=== PATIENT | female | born 1945 | race Caucasian/White ===

== ENCOUNTER 2016-07-08 07:15 | Day surgery (SDC) | payer OTHER ==
[~2016-07-08] VITALS: Ht 152.4 cm; Wt 99.0 kg
[~2016-07-08 07:15] MED LIST: APIDRA100 UNITS/ PO; ASPIR 8181 M1 PO; ASPIR 8181 MG PO; Aldactone PO; BENICAR HCT 401 EAC1 PO; COREG25 M1 PO; COZAAR25 MG PO; Coreg PO; DAILY VALUE1 EACH PO; ERGOCALCIF50000 UNIT PO; FUROSEMIDE20 MG PO; HUMALOG KW200 UNIT/1 SC; LANTUS 10100 UNITS/ SC; LANTUS100 UNIT/1 SQ; LASIX20 MG PO; LEXAPRO20 MG PO; LIPITOR20 MG PO; Lasix PO; Levothroid,Synthroid PO; MOTRIN800 MG PO; NEXIUM40 MG PO; NORVASC10 MG PO; NOVOLOG 10100 UNITS/ SC; NOVOLOG PE100 UNITS/ SC; PEPCID20 MG PO; SKELAXIN400 M1 PO; SYNTHROID100 MCG PO; SYNTHROID137 MCG PO; TOPROL XL100 MG PO; TYLENOL EXTRA500 MG PO; TYLENOL REGULA325 MG PO; Zestril,Prinivil PO
[2016-07-08 07:48] VITALS: BP 168/71
[2016-07-08 08:08] LABS: MCH 31.8 PG (29.0-34.0); MCHC 32.8 G/DL (30.0-36.0); MEAN PLAT.VOLUME 9.6 uM^3 (9.5-12.4); PLATELET COUNT 197 K/uL (156-360); RBC DIS.WIDTH-SD 42.8 % (39-53); RED BLOOD COUNT 2.99 M/uL (3.80-5.20); WHITE BLOOD COUNT 5.8 K/uL (4.1-10.2)
[2016-07-08 08:25] LABS: CHLORIDE 106 mEq/L (99-109); POTASSIUM 4.4 mEq/L (3.7-5.4); SODIUM 138 mEq/L (136-147)
[2016-07-08 08:27] LABS: GLUCOSE 51 mg/dL (70-99)
[2016-07-08 08:28] LABS: ANION GAP 12 MEQ/L (2-14)
[2016-07-08 08:31] LABS: GFR ESTIMATE (CALCULATED) 8 mL/min/
[2016-07-08 08:32] LABS: UREA NITROGEN (BUN) 86 mg/dL (9-23)
[2016-07-08 10:06] LABS: POINT-OF-CARE METER ID UU14174212
[2016-07-08 11:40] LABS: POINT-OF-CARE METER ID UU13113675
[2016-07-08 12:36] VITALS: BP 149/67
[2016-07-08 14:00] VITALS: BP 153/53
== END 2016-07-08 14:00 | disposition home or self-care (01) ==
LOC: SDC 07:15
PROVIDERS: Surgery
PROC: 03180JD Bypass Left Brachial Artery to Upper Arm Vein with Synthetic Substitute, Open Approach (ICD-10-PCS; principal; 2016-07-08)
DX: I12.0 Hypertensive chronic kidney disease with stage 5 chronic kidney disease or end stage renal disease (principal); E11.22 Type 2 diabetes mellitus with diabetic chronic kidney disease; N18.6 End stage renal disease; K21.9 Gastro-esophageal reflux disease without esophagitis; E03.9 Hypothyroidism, unspecified; Z79.4 Long term (current) use of insulin; Z79.82 Long term (current) use of aspirin; Z82.49 Family history of ischemic heart disease and other diseases of the circulatory system; Z83.3 Family history of diabetes mellitus; Z84.1 Family history of disorders of kidney and ureter; Z87.891 Personal history of nicotine dependence
CPT/HCPCS: 80048; 82948; 85027; C1768; J0131; J0690; J1170; J1644; J2250; J2720; J3010

== ENCOUNTER 2016-11-18 14:31 | Day surgery (SDC) | payer OTHER ==
[2016-11-18 15:00] LABS: POINT-OF-CARE METER ID UU13113696; POINT-OF-CARE USER ID HMLCJM07
[2016-11-18 16:08] LABS: METH RESISTANT S AUREUS PCR NEGATIVE (NEGATIVE)
[2016-11-18 16:13] LABS: PROBE CHECK PASS; SPECIMEN PROCESSING CONTROL PASS
== END 2016-11-18 17:33 | disposition home or self-care (01) ==
LOC: CATH 14:31
PROVIDERS: Thoracic Surgery (Cardiothoracic Vascular Surgery)
DX: T82.858A Stenosis of other vascular prosthetic devices, implants and grafts, initial encounter (principal); I12.0 Hypertensive chronic kidney disease with stage 5 chronic kidney disease or end stage renal disease; E11.22 Type 2 diabetes mellitus with diabetic chronic kidney disease; N18.6 End stage renal disease; E66.9 Obesity, unspecified; Z68.41 Body mass index [BMI] 40.0-44.9, adult; Z99.2 Dependence on renal dialysis; Z79.82 Long term (current) use of aspirin; Z87.891 Personal history of nicotine dependence
CPT/HCPCS: 82948; 87641; C1725; C1757; C1769; C1894; C2628; J0690; J1644; J2250; J3010; S0020

== ENCOUNTER 2016-11-23 09:45 | Day surgery (SDC) | payer OTHER ==
[2016-11-23 10:42] LABS: POINT-OF-CARE METER ID UU13113696
[2016-11-23 11:44] LABS: METH RESISTANT S AUREUS PCR NEGATIVE (NEGATIVE)
[2016-11-23 11:46] LABS: PROBE CHECK PASS; SPECIMEN PROCESSING CONTROL PASS
== END 2016-11-23 14:30 | disposition home or self-care (01) ==
LOC: CATH 09:45
PROVIDERS: Surgery
DX: T82.868A Thrombosis due to vascular prosthetic devices, implants and grafts, initial encounter (principal); N18.6 End stage renal disease; Z99.2 Dependence on renal dialysis; Z79.82 Long term (current) use of aspirin
CPT/HCPCS: 82948; 87641; C1725; C1757; C1769; C1874; C1894; C2628; J0690; J1644; J2250; J3010; S0020

== ENCOUNTER 2017-02-28 09:23 | Inpatient (IN) | payer OTHER ==
[2017-02-28] VITALS (10 sets, daily range): BP systolic 134–171; BP diastolic 54–80
[~2017-02-28] VITALS: Ht 162.6 cm; Wt 107.7 kg
[2017-02-28 09:54] LABS: BASOPHIL (%) 0.7 % (0-1); BASOPHIL COUNT 0.1 K/uL (0-0.1); EOSINOPHIL (%) 6.3 % (0-5); EOSINOPHIL COUNT 0.5 K/uL (0-0.3); HEMATOCRIT 31.7 % (36.0-46.0); HEMOGLOBIN 10.7 G/DL (11.9-15.5); IMMATURE GRANULOCYTE (%) 0.4 % (0.0-0.7); LYMPHOCYTE (%) 29.9 % (15-42); LYMPHOCYTE COUNT 2.2 K/uL (1.0-2.8); MCH 35.8 PG (29.0-34.0); MCHC 33.8 G/DL (30.0-36.0); MONOCYTE (%) 7.9 % (3-12); MONOCYTE COUNT 0.6 K/uL (0-0.8); NEUTROPHIL (%) 54.8 % (45-76); NEUTROPHIL COUNT 4.1 K/uL (1.8-6.4); PLATELET COUNT 247 K/uL (156-360); RBC DIS.WIDTH-CV 15.3 % (11.8-14.6); RBC DIS.WIDTH-SD 58.7 % (39-53); RED BLOOD COUNT 2.99 M/uL (3.80-5.20); WHITE BLOOD COUNT 7.5 K/uL (4.1-10.2)
[2017-02-28 10:02] LABS: ALBUMIN 3.4 g/dL (3.2-4.8); CHLORIDE 99 mEq/L (99-109); POTASSIUM 3.7 mEq/L (3.7-5.4); SODIUM 135 mEq/L (136-147)
[2017-02-28 10:03] LABS: AMYLASE 51 IU/L (1-118)
[2017-02-28 10:05] LABS: GLUCOSE 113 mg/dL (70-99); TOTAL PROTEIN 7.5 g/dL (6.4-8.3)
[2017-02-28 10:07] LABS: BASE EXCESS 7.9 mEq/L (-3 to +3); BICARBONATE 30.4 mEq/L (22-26); CARBOXY HGB 1.2 % (0-5); PCO2 34 mm Hg (35-45); PO2 430 mm Hg (80-100)
[2017-02-28 10:07] LABS: TOTAL BILIRUBIN 0.5 mg/dL (0.0-1.0)
[2017-02-28 10:08] LABS: SITE RA; pH 7.56 (7.35-7.45)
[2017-02-28 10:08] LABS: ALKALINE PHOSPHATASE 66 IU/L (3-129); SERUM ETHYL ALCOHOL < 10 mg/dL
[2017-02-28 10:09] LABS: CREATININE 2.6 mg/dL (0.6-1.3); GFR ESTIMATE (CALCULATED) 19 mL/min/
[2017-02-28 10:09] LABS: COMMENTS - BLOOD GASES A+C+; DEVICE VENT; FI02 100 %; MODE AC
[2017-02-28 10:10] LABS: MECHANICAL RATE 18 resp/min; PEEP 5 CM/H20; TIDAL VOLUME 500 ML; TOTAL RESP RATE 18 resp/min
[2017-02-28 10:10] LABS: AST (GOT) 48 IU/L (2-34); UREA NITROGEN (BUN) 27 mg/dL (9-23)
[2017-02-28 10:11] LABS: ALT (GPT) 34 IU/L (3-49)
[2017-02-28 10:12] LABS: LIPASE 59 U/L (1.0-51.0)
[2017-02-28 10:19] LABS: TROP-I INTERPRETATION NEGATIVE
[2017-02-28 10:22] LABS: PTT 131.8 SEC (25-37)
[2017-02-28 10:31] LABS: INTER. NORMALIZED RATIO 1.1
[2017-02-28 16:03] LABS: BASOPHIL (%) 0.4 % (0-1); EOSINOPHIL (%) 3.6 % (0-5); EOSINOPHIL COUNT 0.3 K/uL (0-0.3); HEMATOCRIT 31.9 % (36.0-46.0); HEMOGLOBIN 10.6 G/DL (11.9-15.5); IMMATURE GRANULOCYTE (%) 0.4 % (0.0-0.7); LYMPHOCYTE (%) 19.1 % (15-42); LYMPHOCYTE COUNT 1.6 K/uL (1.0-2.8); MCH 36.1 PG (29.0-34.0); MCHC 33.2 G/DL (30.0-36.0); MCV 108.5 FL (83-99); MONOCYTE (%) 8.8 % (3-12); MONOCYTE COUNT 0.7 K/uL (0-0.8); NEUTROPHIL (%) 67.7 % (45-76); NEUTROPHIL COUNT 5.6 K/uL (1.8-6.4); PLATELET COUNT 229 K/uL (156-360); RBC DIS.WIDTH-CV 15.8 % (11.8-14.6); RBC DIS.WIDTH-SD 61.1 % (39-53); RED BLOOD COUNT 2.94 M/uL (3.80-5.20); WHITE BLOOD COUNT 8.3 K/uL (4.1-10.2)
[2017-02-28 16:13] LABS: CHLORIDE 99 MEQ/L (99-109); SODIUM 134 MEQ/L (136-147)
[2017-02-28 16:18] LABS: POTASSIUM 4.7 MEQ/L (3.7-5.4)
[2017-02-28 16:19] LABS: CREATININE 2.9 MG/DL (0.6-1.3); GFR ESTIMATE (CALCULATED) 17 mL/min/; PHOSPHORUS 3.4 mg/dL (2.5-4.9); UREA NITROGEN (BUN) 28 mg/dL (9-23)
[2017-02-28 16:22] LABS: GLUCOSE 179 mg/dL (70-99)
[2017-02-28 16:57] LABS: PTT 25.3 SEC (25-37)
[2017-02-28 18:55] LABS: TROP-I INTERPRETATION NEGATIVE; TROPONIN-I 0.18 ng/mL (0.0-0.30)
[2017-03-01] VITALS (28 sets, daily range): BP systolic 129–173; BP diastolic 49–126
[2017-03-01 05:55] LABS: BASOPHIL (%) 0.5 % (0-1); BASOPHIL COUNT 0.1 K/uL (0-0.1); EOSINOPHIL (%) 2.8 % (0-5); EOSINOPHIL COUNT 0.3 K/uL (0-0.3); HEMOGLOBIN 10.2 G/DL (11.9-15.5); IMMATURE GRANULOCYTE (%) 0.3 % (0.0-0.7); LYMPHOCYTE (%) 16.4 % (15-42); LYMPHOCYTE COUNT 1.6 K/uL (1.0-2.8); MCH 35.1 PG (29.0-34.0); MCHC 32.9 G/DL (30.0-36.0); MCV 106.5 FL (83-99); MONOCYTE (%) 8.9 % (3-12); MONOCYTE COUNT 0.9 K/uL (0-0.8); NEUTROPHIL (%) 71.1 % (45-76); NEUTROPHIL COUNT 6.7 K/uL (1.8-6.4); PLATELET COUNT 263 K/uL (156-360); RBC DIS.WIDTH-CV 15.5 % (11.8-14.6); RBC DIS.WIDTH-SD 60.5 % (39-53); RED BLOOD COUNT 2.91 M/uL (3.80-5.20); WHITE BLOOD COUNT 9.5 K/uL (4.1-10.2)
[2017-03-01 06:08] LABS: TROP-I INTERPRETATION NEGATIVE; TROPONIN-I 0.26 ng/mL (0.0-0.30)
[2017-03-01 06:15] LABS: CHLORIDE 99 MEQ/L (99-109); GFR ESTIMATE (CALCULATED) 14 mL/min/; GLUCOSE 184 mg/dL (70-99); MAGNESIUM 2.1 mg/dl (1.3-2.7); PHOSPHORUS 3.8 mg/dL (2.5-4.9); POTASSIUM 5.1 MEQ/L (3.7-5.4); SODIUM 134 MEQ/L (136-147); UREA NITROGEN (BUN) 35 mg/dL (9-23)
[2017-03-01 06:18] LABS: CREATININE 3.5 MG/DL (0.6-1.3)
[2017-03-01] MEDS ORDERED: RENVELA800 MG PO (09:00)
[2017-03-01] MEDS ORDERED: CARVEDILOL25 MG PO (09:02)
[2017-03-01] MEDS ORDERED: RENA-VITE RX T1 EACH PO (09:02)
[2017-03-01] MEDS ORDERED: TYLENOL EXTRA500 MG PO (09:03)
[2017-03-01] MEDS ORDERED: PEPCID20 MG PO (09:03)
[2017-03-01] MEDS ORDERED: PRESERVISION A1 EAC2 PO (09:03)
[2017-03-01] MEDS ORDERED: LEVOTHYROXINE100 MCG PO (09:04)
[2017-03-01] MEDS ORDERED: LANTUS 10100 UNITS/ SC (09:04)
[2017-03-01] MEDS ORDERED: HUMALOG100 UNIT/2 SC (09:04)
[2017-03-01] MEDS ORDERED: ATORVASTATIN CA20 MG PO (09:05)
[2017-03-01] MEDS ORDERED: DIPHENHYDRAMINE25 M2 PO (09:05)
[2017-03-01] MEDS ORDERED: FUROSEMIDE20 MG PO (09:06)
[2017-03-01] MEDS ORDERED: LO-DOSE ASPIRIN81 M2 PO (09:06)
[2017-03-01] MEDS ORDERED: LEG CRAMPS PO (09:07)
[2017-03-01] MEDS ORDERED: LIDOCAINE-PRIL1 EACH TP (09:08)
== END 2017-03-01 22:19 | disposition short-term general hospital (02) | DRG 208 ==
LOC: EME 09:23 → 4WEST 13:49 → EDOF 13:49 → ENRESERV 13:51 → 4WEST 14:58 → ENRESERV 03-01 17:25 → CANRESERV 03-01 17:25 → 4WEST 03-01 17:43
PROVIDERS: Emergency Medicine Emergency Medical Services; Internal Medicine Nephrology; Specialist
PROC: 0BH17EZ Insertion of Endotracheal Airway into Trachea, Via Natural or Artificial Opening (ICD-10-PCS; principal; 2017-02-28)
PROC: 5A1935Z Respiratory Ventilation, Less than 24 Consecutive Hours (ICD-10-PCS; principal; 2017-02-28)
PROC: 4A023N7 Measurement of Cardiac Sampling and Pressure, Left Heart, Percutaneous Approach (ICD-10-PCS; 2017-03-01)
PROC: B2111ZZ Fluoroscopy of Multiple Coronary Arteries using Low Osmolar Contrast (ICD-10-PCS; 2017-03-01)
PROC: B2151ZZ Fluoroscopy of Left Heart using Low Osmolar Contrast (ICD-10-PCS; 2017-03-01)
DX: J96.90 Respiratory failure, unspecified, unspecified whether with hypoxia or hypercapnia (principal); I46.9 Cardiac arrest, cause unspecified; E87.3 Alkalosis; R57.9 Shock, unspecified; J43.9 Emphysema, unspecified; I13.2 Hypertensive heart and chronic kidney disease with heart failure and with stage 5 chronic kidney disease, or end stage renal disease; E11.22 Type 2 diabetes mellitus with diabetic chronic kidney disease; I25.5 Ischemic cardiomyopathy; N18.6 End stage renal disease; E66.9 Obesity, unspecified; E03.9 Hypothyroidism, unspecified; D64.9 Anemia, unspecified; E78.5 Hyperlipidemia, unspecified; J32.9 Chronic sinusitis, unspecified; I50.9 Heart failure, unspecified; G89.29 Other chronic pain; I25.10 Atherosclerotic heart disease of native coronary artery without angina pectoris; K21.9 Gastro-esophageal reflux disease without esophagitis; Z87.891 Personal history of nicotine dependence; Z99.2 Dependence on renal dialysis; Z90.710 Acquired absence of both cervix and uterus; Z88.8 Allergy status to other drugs, medicaments and biological substances; Z82.49 Family history of ischemic heart disease and other diseases of the circulatory system; Z86.73 Personal history of transient ischemic attack (TIA), and cerebral infarction without residual deficits; Z79.82 Long term (current) use of aspirin; Z79.4 Long term (current) use of insulin; I25.2 Old myocardial infarction; Z79.899 Other long term (current) drug therapy; Z83.3 Family history of diabetes mellitus; Z80.9 Family history of malignant neoplasm, unspecified
CPT/HCPCS: 36600; 70450; 71045; 80048; 80048 91; 80053; 81003; 82150; 82803; 82948; 83605; 83690; 83735; 84100; 84484; 85025; 85025 91; 85610; 85730; 86850; 86900; 86901; 87070; 87077; 87147; 87186; 87205; 87641; 93005; 93306; 94002; 94003; 99281; 99285; C1769; C1887; G0480; J0282; J0295; J1644; J1815; J1940; J2250; J2704; J3010; J7050; S0028